=== PATIENT | female | born 1970 | race Caucasian/White ===

== ENCOUNTER 2022-12-14 19:16 | Emergency (ER) | payer BC ==
[2022-12-14] MEDS ORDERED: IBUPROFEN 400 MG TABLET (FP) PO ONE ×2 (19:27→19:32)
[2022-12-14 19:37] VITALS: BP 100/80; PULSE 89; RESP 15; TEMP 98.2; BMI 24.9
[2022-12-14 20:11] LABS: ALBUMIN 4.4 g/dl (3.4-5.0); BILIRUBIN,TOTAL 0.5 mg/dl (0.2-1); CALCIUM 9.3 mg/dl (8.5-10); CREATININE 0.9 mg/dl (0.55-1.3)
[2022-12-14 20:39] LABS: HEMATOCRIT 39.3 % (32.4-45.2); HEMOGLOBIN 13.1 G/dL (10.7-15.3); MCH 30.6 pg (25.7-33.7); MCHC 33.4 g/dl (32.0-36.0); MEAN CELL VOLUME 91.6 fl (80-96); MEAN PLT VOLUME 11.1 fl (7.5-11.1); PLATELET COUNT 198.2 10^3/uL (134-434); RBC 4.29 10^6/uL (3.60-5.2); RDW 14.1 % (11.6-15.6); WHITE BLOOD COUNT 9.7 10^3/uL (4.0-10.8)
[2022-12-14 22:05] LABS: PLATELET ESTIMATE ADEQUATE
== END 2022-12-14 21:45 | disposition home or self-care (01) ==
LOC: FER 19:16
DX: D25.9 Leiomyoma of uterus, unspecified (principal); R10.31 Right lower quadrant pain
CPT/HCPCS: 36415; 76830-TC; 80053; 81003; 85027; 99284-25